=== PATIENT | male | born 1960 | race African-American/Black ===

== ENCOUNTER 2018-07-29 15:12 | Inpatient (IN) | payer BC, OTHER ==
[~2018-07-29] VITALS: Ht 175.3 cm; Wt 157.6 kg
[2018-07-29] VITALS (21 sets, daily range): BP systolic 106–170; BP diastolic 57–113; PULSE 79–104; RESP 16–29; Ht 175.3 cm; Wt 157.6 kg
[~2018-07-29 15:12] MED LIST: CEFAZOLIN 1 GM INJ ONE; LIDOCAINE 2% (SDV) 5 ML INJ ONE; METOCLOPRAMIDE 10 MG INJ ONE; PHENYLephrine (100 MCG/ML) 5ML SYG ONE; PROPOFOL 200 MG INJ ONE; SEVOFLURANE 15 MIN ONE; SUCCINYLCHOLINE CHLORIDE 100 MG/5 ML SYG IV ONE
--- NOTE | 2018-07-29 15:41 | HPN ---
Date/Time of Note Date/Time of Note DATE: 07/29/18 TIME: 15:41 Interval H&P Admission Note Pt. seen H&P reviewed: No system changes SHIMON RIVAS Jul 29, 2018 15:41
[2018-07-29] MEDS ORDERED: IPRATROPIUM (NEB) 0.5 MG/2.5 ML AMP HHN ONE (16:00)
[2018-07-29] MEDS ORDERED: LEVALBUTEROL (NEB) 1.25 MG/0.5 ML AMP HHN ONE (16:00)
[2018-07-29] MEDS ORDERED: MIDAZOLAM 1 MG/ML 2 ML INJ ONE (16:14)
[2018-07-29] MEDS ORDERED: FENTAnyl 50 MCG/ML VIAL ONE (16:14)
[2018-07-29] MEDS ORDERED: ONDANSETRON 4 MG INJ ONE (16:15)
--- NOTE | 2018-07-29 16:36 | PREAC ---
Date/Time of Note Date/Time of Note DATE: 07/29/18 TIME: 16:34 Anesthesia Eval and Record Evaluation Time Pre-Procedure Interview DATE: 07/29/18 TIME: 16:34 Age 58 Sex male NPO: 8 hrs Preoperative diagnosis L small finger deformity Planned procedure L ORIF small finger Past Medical History Past Medical History: Includes Cardio: HTN, Dyslipidemia Pulm: Smoking Hx (40 years), COPD, Sleep Apnea, Home CPAP GI: Morbid obesity Surgery & Anesthesia Issues Hx of difficult intubation Meds Anticoagulation: No Beta Erwin within 24 hr: No Reason Beta Erwin not given: Pt. not on B-Erwin Meds reviewed: Yes Allergies Coded Allergies: No Known Allergy (Unverified , 07/29/18) Allergies Reviewed: Yes Labs/Studies Labs Reviewed: Reviewed by anesthesiologist test: N/A Studies: ECG, CXR Pre-procedure Exam Last vitals Vital Signs Date Temp Pulse Resp B/P (MAP) Pulse Ox O2 O2 Flow FiO2 Time Delivery Rate 07/29/18 102 19 96 21 16:02 Airway: Adequate mouth opening, Adequate thyromental dist Mallampati: Mallampati III Teeth: Normal Lung: Normal Heart: Normal ASA Physical Status ASA physical status: 3 Emergency: None Planned Anesthetic General/MAC: LMA Planned Pain Management Single shot nerve block, Parenteral pain med, Local by surgeon Pre-operative Attestations Prior to commencing anesthesia and surgery, the patient was re-evaluated, there was verification of: *The patient's identity *The results of appropriate recent lab work and preoperative vital signs *The above evaluation not changing prior to induction *Anesthetic plan, risk benefits, alternative and complications discussed with patient/family; questions answered; patient/family understands, accepts and wishes to proceed. JUWAN JONES MD Jul 29, 2018 16:36
[2018-07-29] MEDS ORDERED: ROPIVACAINE 0.5 % 30 ML VIAL ONE (16:41)
[2018-07-29] MEDS ORDERED: DIPHENHYDRAMINE 50 MG INJ IV PRN (17:00)
[2018-07-29] MEDS ORDERED: hydrALAzine 20 MG INJ IV PRN (17:00)
[2018-07-29] MEDS ORDERED: LEVALBUTEROL (NEB) 1.25 MG/0.5 ML AMP HHN PRN (17:00)
[2018-07-29] MEDS ORDERED: ONDANSETRON 4 MG INJ IV PRN (17:00)
[2018-07-29] MEDS ORDERED: MEPERIDINE 25 MG INJ IV PRN (17:00)
[2018-07-29] MEDS ORDERED: IPRATROPIUM (NEB) 0.5 MG/2.5 ML AMP HHN PRN (17:00)
[2018-07-29] MEDS ORDERED: FENTAnyl 50 MCG/ML VIAL IV PRN (17:00)
[2018-07-29] MEDS ORDERED: PROVENTIL HFA 6.7GM INHALER ONE (18:03)
--- NOTE | 2018-07-29 18:03 | OPPN ---
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
[2018-07-29] MEDS ORDERED: hydrALAzine 20 MG INJ ONE (18:26)
[2018-07-29] MEDS ORDERED: METOPROLOL 5 MG INJ ONE (18:27)
[2018-07-29] MEDS: HYDROmorphONE 1 MG/5 ML IV SYRINGE IV PRN ×2 (18:58→20:08)
[2018-07-29] MEDS ORDERED: LOSA25TA12 PO (21:05)
[2018-07-29] MEDS ORDERED: ALBUTEROL/IPRATROPIUM (NEB) 3 ML AMP HHN PRN (21:30)
[2018-07-29] MEDS ORDERED: morphine 4 MG/ML VIAL IV PRN (21:30)
--- NOTE | 2018-07-29 23:53 | HP ---
Date/Time of Note Date/Time of Note DATE: 07/29/18 TIME: 23:52 Assessment/Plan VTE Prophylaxis Risk score (from Nsg)>0 risk: 3 SCD applied (from Nsg): Yes Pharmacological prophylaxis: heparin Lines/Catheters IV Catheter Type (from Nrsg): Saline Lock Assessment/Plan Assessment/Plan 1. left small finger CMC fracture dislocation: s/p ORIF -Management per surgery 2. KYLER and COPD, on CPAP at home -PRN PPV -Bronchodilators -Check ABG in a.m. 3. Hypertension: BP was in acceptable range. Continue home med HPI/ROS Admit Date/Time Admit Date/Time Jul 29, 2018 at 18:53 Hx of Present Illness This is a 58-year-old morbidly male with a history of KYLER, COPD on CPAP at home, history of hypertension who is admitted status post left small finger CMC fracture dislocation ORIF. Patient was on BiPAP while he was in recovery room. Currently on room air and he looks comfortable. He does not have any complaints at this time. PMH/Family/Social Past Medical History Medical History: other (See HPI) Medications Current Medications Albuterol/ Ipratropium (Duoneb) 3 ml Q4H RESP THERAPY PRN HHN SHORTNESS OF BREATH; Start 07/29/18 at 21:30 Morphine Sulfate (morphine) 3 mg Q4H PRN IV SEVERE PAIN LEVEL 7-10; Start 07/29/18 at 21:30 Coded Allergies: No Known Allergy (Unverified , 07/29/18) Past Surgical History Past Surgical Hx: other (See HPI) Family History Significant Family History: no pertinent family hx Social History Alcohol Use: none Smoking Status: Former smoker Drug Use: none Exam/Review of Systems Vital Signs Vitals Vital Signs Date Temp Pulse Resp B/P (MAP) Pulse Ox O2 O2 Flow FiO2 Time Delivery Rate 07/29/18 98.5 79 24 128/74 96 23:34 (92) 07/29/18 2.0 28 21:36 07/29/18 Nasal 20:14 Cannula Exam Constitutional: other (Patient lying in bed. No acute distress) Head: normocephalic, atraumatic Eyes: EOMI, PERRL Respiratory: other (Decreased breath sounds at the base bilaterally) Cardiovascular: regular rate and rhythm, nl pulses Gastrointestinal: soft, non-tender TEX POWERS MD Jul 29, 2018 23:52
[2018-07-30] VITALS (8 sets, daily range): BP systolic 120–135; BP diastolic 61–72; PULSE 73–102; RESP 20–22
[2018-07-30] MEDS ORDERED: ONDANSETRON 4 MG INJ IV PRN
[2018-07-30] MEDS: HEPARIN 5,000 UNIT/1 ML VIAL SC SCH ×2 (05:57→15:38)
--- NOTE | 2018-07-30 11:20 | PAC ---
Date/Time of Note Date/Time of Note DATE: 07/30/18 TIME: 11:20 Post-Anesthesia Notes Post-Anesthesia Note Last documented vital signs Vital Signs Date Temp Pulse Resp B/P (MAP) Pulse Ox O2 O2 Flow FiO2 Time Delivery Rate 07/30/18 82 08:01 07/30/18 Nasal 2.0 08:00 Cannula 07/30/18 98.0 20 123/61 97 07:22 (81) 07/30/18 28 04:21 Activity: WNL Respiratory function: Other (pt w/ atalectatis/COPD respiratory dysfunction and on BiPap support w/ VSS) Cardiovascular function: WNL Mental status: Baseline Pain reasonably controlled: Yes Hydration appropriate: Yes Nausea/Vomiting absent: Yes JUWAN JONES MD Jul 30, 2018 11:20
--- NOTE | 2018-07-30 13:00 | PDOCDIS ---
Discharge Instructions DIAGNOSIS Discharge Diagnosis post op mild resp failure: resolved pre DM obesity Obesity hypoventilation syndrome CKD CONDITION [id number] Patient Condition: [id number] Stable HOME CARE INSTRUCTIONS: [id number] Diet Instructions: [id number] Reduced Calorie [id number] Special Diet: [id number] try to reduce daily caloric intake to 2000, and eat a diabetic diet ACTIVITY: [id number] Activity Restrictions: [id number] Slowly Increase Activity Rest between Activity FOLLOW UP/APPOINTMENTS Follow-up Plan Continue home CPAP and followup with PCP in 1-2 weeks Followup with Ortho as previously instructed LUIS MUHAMMAD Jul 30, 2018 13:00
--- NOTE | 2018-07-30 19:44 | OPR ---
DATE OF OPERATION: 07/29/2018 SURGEON: Chung Rivas MD ANESTHESIA: Peripheral nerve block plus general. PREOPERATIVE DIAGNOSES: 1. Left small finger metacarpal base fracture, intraarticular, comminuted, displaced. 2. Left small finger carpometacarpal joint dislocation, chronic. POSTOPERATIVE DIAGNOSES: 1. Left small finger metacarpal base fracture, intraarticular, comminuted, displaced. 2. Left small finger carpometacarpal joint dislocation, chronic. PROCEDURES: 1. Open reduction and internal fixation of left small finger metacarpal base fracture, intraarticula r, comminuted, displaced. 2. Open reduction of left small finger carpometacarpal joint dislocation. OPERATIVE FINDINGS: Fracture dislocation, left small finger CMC joint. INDICATION FOR PROCEDURE: This is a 58-year-old male with injury to left hand. He was seen in [facility] and diagnosed with a displaced shortened fracture. I discussed the options and the patient elected to proceed with surgical intervention, understanding risks and benefits. DESCRIPTION OF PROCEDURE: The patient was seen in the preoperative area. All further questions were answered. Again, he gave informed consent, understanding risks and benefits. He was taken to opera tive suite and placed in supine position. A peripheral nerve block was performed by the anesthesia t eam and patient was placed under general anesthesia. Tourniquet was placed in the left upper extremi ty and left upper extremity was prepped with ChloraPrep stick and draped in the usual sterile fashion . Ancef 2 grams IV was given and Esmarch bandage was used to exsanguinate the extremity and tourniqu et was inflated to 250 mmHg. A longitudinal incision over the small finger CMC joint was utilized wi sharp dissection carried down through skin and subcutaneous tissue. The extensor tendons of the s mall finger were retracted and protected. A longitudinal capsulotomy was made at the left small fing er CMC joint and the fracture site was identified with comminution and shortening of the intraarticul ar metacarpal base fracture. There is also a dislocation of the small finger proximally and ulnarly. The fracture fragments were mobilized and the scar tissue surrounding the injury site was freed up in order to mobilize the metacarpal more distally. A 0.062 K-wire was driven from the small finger m etacarpal base into the ring finger and middle finger. An additional 0.062 K-wire was driven from th e small finger metacarpal base into the ring finger and middle finger. X-ray imaging showed appropri ate hardware placement and bony alignment. The pins were cut short and the wound was copiously irrig ated. Skin was closed with 4-0 nylon. Xeroform was placed over wound followed by sterile gauze, Web ril and a short arm ulnar gutter splint. The patient was taken to postoperative suite and was admitt ed overnight to med/surg for desaturation and difficulty breathing after extubation. SPECIMENS: None. ESTIMATED BLOOD LOSS: 5 mL. COUNTS: Sponge, instrument, needle counts correct. TOURNIQUET TIME: 70 minutes. CONDITION ON DISCHARGE: The patient was admitted to the floor with desaturation and difficulty breat rad. The patient was given a nonrefillable 5-day prescription for pain medication for surgery today. Dictated By: CHUNG RIVAS MD JDN/NTS Conf#: [id number] DID#: [id number] CC: TEX POWERS MD;*EndCC*
--- NOTE | 2018-07-31 07:20 | DS ---
Date/Time of Note Date/Time of Note DATE: 07/31/18 TIME: 07:19 Discharge Summary Admission/Discharge Info Admit Date/Time Jul 29, 2018 at 18:53 Discharge Date/Time Jul 30, 2018 at 16:07 Discharge Diagnosis post op mild resp failure: resolved pre DM obesity Obesity hypoventilation syndrome CKD Patient Condition: Stable Home Meds Reported Medications Losartan Potassium* (Losartan Potassium*) 25 Mg Tablet, 25 MG PO DAILY, TAB 07/29/18 Follow-up Plan Continue home CPAP and followup with PCP in 1-2 weeks Followup with Ortho as previously instructed Primary Care Provider Not On Staff Doctor Time spent on discharge: > 30 minutes LUIS MUHAMMAD Jul 31, 2018 07:19
== END 2018-07-30 16:07 | disposition home or self-care (01) | DRG 513 ==
LOC: SDS 15:12 → REC 18:53 → SDS 18:53 → TEL 20:32
PROVIDERS: ADMIT Orthopaedic Surgery Hand Surgery; ATTEND Orthopaedic Surgery Hand Surgery
PROC: 0PSP04Z Reposition Right Metacarpal with Internal Fixation Device, Open Approach (ICD-10-PCS; principal; 2018-07-29 16:30)
DX: S62.317A Displaced fracture of base of fifth metacarpal bone, left hand, initial encounter for closed fracture (principal); J95.821 Acute postprocedural respiratory failure; E66.2 Morbid (severe) obesity with alveolar hypoventilation; Z68.43 Body mass index [BMI] 50.0-59.9, adult; G47.33 Obstructive sleep apnea (adult) (pediatric); J44.9 Chronic obstructive pulmonary disease, unspecified; R73.03 Prediabetes; Z87.891 Personal history of nicotine dependence; I12.9 Hypertensive chronic kidney disease with stage 1 through stage 4 chronic kidney disease, or unspecified chronic kidney disease; N18.9 Chronic kidney disease, unspecified; Y83.8 Other surgical procedures as the cause of abnormal reaction of the patient, or of later complication, without mention of misadventure at the time of the procedure; Y92.239 Unspecified place in hospital as the place of occurrence of the external cause
CPT/HCPCS: 36600; 71045; 73140; 80053; 80061; 82803; 83036; 85025; 94660; 94664; J0360; J0690; J1170; J1644; J2250; J2270; J2370; J2405; J2765; J2795; J3010